=== PATIENT | male | born 1995 | race American Indian/Alaskan Native ===

== ENCOUNTER 2017-08-19 23:44 | Emergency (ER) | payer MEDICAID ==
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
[2017-08-20 08:35] LABS: BUN/Creatinine Ratio 9; Blood Urea Nitrogen 7 mg/dL (9-20); Calcium 9.7 mg/dL (8.4-10.2); Hemolysis Index 113
[2017-08-20 08:46] LABS: Hematocrit 52.1 % (35.5-45.6); Hemoglobin 17.4 gm/dl (11.8-15.2); Mean Corpuscular HGB Conc 33 % (32-34); Mean Corpuscular Hemoglobin 29 pg (28-32); Mean Corpuscular Volume 87 fl (84-94); Red Blood Count 5.99 M/mm3 (3.65-5.03); Red Cell Distribution Width 13.5 % (13.2-15.2)
[2017-08-20 08:58] VITALS: BP 123/67
[2017-08-20 09:27] LABS: RBC Morphology Normal; Total Cells Counted 100
[2017-08-20 09:31] LABS: Platelet Count 206 K/mm3 (140-440)
== END 2017-08-20 09:27 | disposition home or self-care (01) ==
LOC: ED 23:44
DX: F41.9 Anxiety disorder, unspecified (principal); I10 Essential (primary) hypertension; J45.909 Unspecified asthma, uncomplicated
CPT/HCPCS: 36415; 80048; 85007; 85025; 93005; 93010; 99283